=== PATIENT | female | born 1980 | race Caucasian/White ===

== ENCOUNTER 2022-05-04 16:34 | Outpatient (CLI) | payer BC, SELFPAY ==
[2022-05-04 21:36] LABS: Chloride* 106 mmol/L (96-114); Potassium* 4.8 mmol/L (3.6-5.1); Sodium* 141 mmol/L (135-149)
[2022-05-04 21:39] LABS: Blood Urea Nitrogen* 19 mg/dL (5-24); Carbon Dioxide* 27 mmol/L (20-32); Estimated Glomerular Filt Rate 72 ml/min
[2022-05-04 21:40] LABS: Calcium* 9.9 mg/dL (8.4-10.6); Glucose* 100 mg/dL (60-115)
== END 2022-05-04 16:35 | disposition home or self-care (01) ==
LOC: LKVREF 16:35
PROVIDERS: Visit Provider Emergency Medicine
DX: Z01.818 Encounter for other preprocedural examination (principal)
CPT/HCPCS: 80048